=== PATIENT | female | born 1955 | race Two or more races ===

== ENCOUNTER 2024-04-02 13:28 | Inpatient (IN) | payer MEDICARE, OTHER ==
[~2024-04-02] VITALS: Ht 165.1 cm; Wt 68.0 kg
[2024-04-02 14:42] LABS: APPEARANCE,URINE CLEAR (CLEAR); BILIRUBIN,URINE NEGATIVE (NEGATIVE); BLOOD, URINE NEGATIVE Ery/uL (NEGATIVE); COLOR,URINE YELLOW (YELLOW); KETONES,URINE NEGATIVE (NEGATIVE); LEUKOCYTE ESTERASE ,URINE TRACE (NEGATIVE); NITRITE, URINE NEGATIVE (NEGATIVE); PH,URINE 5.5 (5.0-8.0); PROTEIN,URINE NEGATIVE (NEGATIVE); UGLUCOSE NEGATIVE (NEGATIVE); UROBILINOGEN,URINE 0.2 EU/dL (0.2)
[2024-04-02] MEDS ORDERED: ASCO-352 PO (14:59)
[2024-04-02] MEDS ORDERED: BISA10SU11 RC (14:59)
[2024-04-02] MEDS ORDERED: NA P133E RC (14:59)
[2024-04-02] MEDS ORDERED: AMIN30LI2 PO (14:59)
[2024-04-02] MEDS ORDERED: ARGI1POW13 PO (14:59)
[2024-04-02] MEDS ORDERED: ZIPR40CA2 PO (14:59)
[2024-04-02] MEDS ORDERED: FERR325T28 PO (14:59)
[2024-04-02] MEDS ORDERED: LITH300T3 PO (14:59)
[2024-04-02] MEDS ORDERED: ACET-868 PO ×2 (14:59)
[2024-04-02] MEDS ORDERED: ACET-2030 PO (14:59)
[2024-04-02] MEDS ORDERED: MAGN400O6 PO (14:59)
[2024-04-02] MEDS ORDERED: CHOL100062 PO (14:59)
[2024-04-02] MEDS ORDERED: ZINC220C6 PO (14:59)
[2024-04-02 15:25] LABS: AMPHETAMINE, URINE NEGATIVE (NEGATIVE); BARBITURATE, URINE NEGATIVE (NEGATIVE); BENZODIAZEPINE, URINE NEGATIVE (NEGATIVE); CANNABINOID, URINE NEGATIVE (NEGATIVE); COCCAINE, URINE NEGATIVE (NEGATIVE); OPIATE, URINE NEGATIVE (NEGATIVE); PHENCYCLIDINE SCREEN,URINE NEGATIVE (NEGATIVE)
[2024-04-02 15:29] LABS: ADD URINE CULTURE YES; BACTERIA,URINE Few /HPF (None Seen); RBC,URINE 0-2 /HPF (0-2); SQUAMOUS EPITHELIAL CELL,UR Few /HPF (None Seen); WBC,URINE 21-50 /HPF (0-3)
[2024-04-02 15:30] LABS: MUCUS,URINE Few /LPF (None Seen)
[2024-04-02 15:36] LABS: ALANINE AMINOTRANSFERASE 10 U/L (12-78); ALBUMIN 3.2 g/dL (3.4-5.0); ALCOHOL, BLOOD < 3 mg/dL (0-10); ALKALINE PHOSPHATASE 85 U/L (46-116); ASPARTATE AMINOTRANSFERASE 10 U/L (15-37); BILIRUBIN,DIRECT 0.1 mg/dL (0.0-0.2); BILIRUBIN,TOTAL 0.2 mg/dL (0.2-1.0); CALCIUM, SERUM 8.7 mg/dL (8.5-10.1); CREATININE 0.6 mg/dL (0.6-1.3); GLUCOSE 104 mg/dL (74-106); TOTAL PROTEIN, SERUM 7.1 g/dL (6.4-8.2); UREA NITROGEN, BLOOD 12 mg/dL (7-18)
[2024-04-02 15:39] LABS: CARBON DIOXIDE 29 mmol/L (21-32); CHLORIDE 103 mmol/L (98-107); SALICYLATE 1.8 mg/dL (2.8-20.0); SODIUM SERUM 138 mmol/L (136-145)
[2024-04-02 15:40] LABS: ACETAMINOPHEN <10 ug/ml (10-30)
[2024-04-02 15:52] LABS: HEMATOCRIT 38 % (33-45); HEMOGLOBIN 12.4 g/dL (11.5-14.8); MEAN CORPUSCULAR HEMOGLOBIN 86 PG (26.0-33.0); MEAN CORPUSCULAR VOLUME 86 fL (82-100); RED BLOOD CELL COUNT(AUTO) 4.39 MIL/uL (4.0-5.2); WHITE BLOOD COUNT (AUTO) 8.2 K/uL (4.3-11.0)
[2024-04-02 15:53] LABS: MEAN CORPUSCULAR HGB CONC 33 g/dl (31.0-36.0); NEUTROPHILS % (AUTO) 70.4 % (43.0-81.0); PLATELET COUNT (AUTO) 192 K/uL (150-450)
[2024-04-02 15:54] LABS: BASOPHILS % (MANUAL) 0 % (0.0-2.0); EOSINOPHILS % (MANUAL) 1 % (0-4); LYMPHOCYTES % (MANUAL) 17 % (16-48); MONOCYTES % (MANUAL) 4 % (0-11.0); NEUTROPHILS % (MANUAL) 78 (42-76)
[2024-04-02 15:55] LABS: PLATELET ESTIMATE ADEQUATE
[2024-04-02] MEDS ORDERED: NITROFURANTOIN/MONOHYDRATE MACROCRYSTALS 100 MG CAPSULE ONE (16:08)
[2024-04-02] MEDS: NITROFURANTOIN/MONOHYDRATE MACROCRYSTALS 100 MG CAPSULE PO ONE (16:11)
[2024-04-02 18:00] VITALS: O2SAT 99
[2024-04-02] MEDS ORDERED: clonazePAM 0.5 MG TABLET PO PRN (21:00)
[2024-04-02] MEDS ORDERED: MAG HYDROX/AL HYDROX/SIMETH 30 ML UDC PO PRN (21:00)
[2024-04-02] MEDS ORDERED: MAGNESIUM HYDROXIDE 30 ML UDC PO PRN (21:00)
[2024-04-02] MEDS ORDERED: TEMAZEPAM 7.5 MG CAPSULE PO PRN (21:00)
[2024-04-02] MEDS: BLOOD SUGAR DIAGNOSTIC 1 EACH STRIP IN ONE (22:10)
[2024-04-03] MEDS ORDERED: BISACODYL SUPP (10 MG) 10 MG/SUPP.RECT SUPP.RECT RC PRN (01:00)
[2024-04-03] MEDS: ARGININE/GLUTAMINE/CALCIUM BMB 1 EACH POWD.PACK PO SCH (09:30)
[2024-04-03] MEDS: FERROUS SULFATE (325 MG) 325 MG/TAB TABLET PO SCH (09:58)
[2024-04-03] MEDS: ZINC SULFATE 220 MG CAPSULE PO SCH (09:58)
[2024-04-03] MEDS: ASCORBIC ACID 500 MG TABLET PO SCH (09:58)
[2024-04-03] MEDS: LITHIUM CARBONATE (300 MG CAP) 300 MG CAPSULE PO SCH (09:58)
[2024-04-03] MEDS: ZIPRASIDONE 20 MG CAPSULE PO SCH (09:58)
[2024-04-03] MEDS: PROSOURCE / PROSTAT (PYXIS) 30 ML UDC PO SCH (09:59)
[2024-04-03] MEDS: CHOLECALCIFEROL 1,000 UNIT TABLET (VIT D3) PO SCH (10:00)
[2024-04-03 16:00] VITALS: BP 106/69; TEMP 98.1; O2SAT 99
[2024-04-04 08:00] VITALS: BP 111/72; TEMP 97.7; O2SAT 98
[2024-04-04 16:00] VITALS: BP 114/70; TEMP 97.9; O2SAT 97
[2024-04-05 08:00] VITALS: BP 101/64; TEMP 98.6; O2SAT 98
[2024-04-05 16:00] VITALS: BP 109/67; TEMP 98.6; O2SAT 97
[2024-04-06 21:31] VITALS: BP 107/61; TEMP 97.7; O2SAT 98
[2024-04-07 08:00] VITALS: BP 124/75; TEMP 98.7; O2SAT 100
[2024-04-07 16:00] VITALS: BP 127/71; TEMP 98.1; O2SAT 100
[2024-04-08 08:00] VITALS: BP 128/69; TEMP 97.8; O2SAT 99
[2024-04-08 16:00] VITALS: BP 134/65; TEMP 97.9; O2SAT 99
[2024-04-09 08:00] VITALS: BP 125/76; TEMP 97.9; O2SAT 98
[2024-04-09 16:00] VITALS: BP 114/73; TEMP 98; O2SAT 98
[2024-04-10 08:00] VITALS: BP 133/73; TEMP 98.4; O2SAT 98
[2024-04-10 16:00] VITALS: BP 137/75; TEMP 98.6; O2SAT 100
[2024-04-10] MEDS: ACETAMINOPHEN 325 MG TABLET PO PRN (22:35)
[2024-04-11 08:00] VITALS: BP 134/54; TEMP 97.9; O2SAT 98
[2024-04-11 16:00] VITALS: BP_SYST 125; BP_SYST 99; BP_DIAS 58; BP_DIAS 73; TEMP 97.9; O2SAT 98; O2SAT 99
[2024-04-12 08:00] VITALS: BP 115/73; TEMP 98.6; O2SAT 97
[2024-04-13 08:00] VITALS: BP 112/65; TEMP 97.9; O2SAT 98
[2024-04-13 16:00] VITALS: BP 141/70; TEMP 97.8; O2SAT 97
[2024-04-14] MEDS: TEMAZEPAM 7.5 MG CAPSULE PO PRN (00:27)
[2024-04-14 08:14] VITALS: BP 104/62; TEMP 98; O2SAT 99
[2024-04-14 16:08] VITALS: BP 118/97; TEMP 97.5; O2SAT 98
[2024-04-15 08:00] VITALS: BP 129/92; TEMP 97.7; O2SAT 98
[2024-04-15] MEDS: clonazePAM 0.5 MG TABLET PO PRN (08:42)
[2024-04-15 16:00] VITALS: BP 134/64; TEMP 97.9; O2SAT 97
[2024-04-16 08:00] VITALS: BP 111/95; TEMP 98; O2SAT 98
== END 2024-04-16 14:00 | DRG 885 ==
LOC: ER 13:59 → GPS 19:39
PROVIDERS: ADMIT Nurse Practitioner Psychiatric/Mental Health
DX: F31.9 Bipolar disorder, unspecified (principal); E44.1 Mild protein-calorie malnutrition; I50.32 Chronic diastolic (congestive) heart failure; F03.92 Unspecified dementia, unspecified severity, with psychotic disturbance; F03.911 Unspecified dementia, unspecified severity, with agitation; F03.93 Unspecified dementia, unspecified severity, with mood disturbance; F03.94 Unspecified dementia, unspecified severity, with anxiety; F29 Unspecified psychosis not due to a substance or known physiological condition; E78.5 Hyperlipidemia, unspecified; Z88.0 Allergy status to penicillin; Z88.8 Allergy status to other drugs, medicaments and biological substances; Z79.899 Other long term (current) drug therapy; E88.09 Other disorders of plasma-protein metabolism, not elsewhere classified; Z73.6 Limitation of activities due to disability; Z91.148 Patient's other noncompliance with medication regimen for other reason; J44.9 Chronic obstructive pulmonary disease, unspecified; R13.10 Dysphagia, unspecified; E55.9 Vitamin D deficiency, unspecified
CPT/HCPCS: 36415; 80048-TC; 80076-TC; 80178-TC; 81001; 85025-TC; 87086-TC; G0480

== ENCOUNTER 2024-10-01 18:56 | Inpatient (IN) | payer MEDICARE, OTHER ==
[~2024-10-01] VITALS: Ht 165.1 cm; Wt 70.3 kg
[~2024-10-01 18:56] MED LIST: ACET-2030 PO; ACET-868 PO; AMIN30LI2 PO; ARGI1POW13 PO; ASCO-352 PO; BISA10SU11 RC; CHOL100062 PO; FERR325T28 PO; LITH300T3 PO; MAGN400O6 PO; NA P133E RC; ZINC220C6 PO; ZIPR40CA2 PO
[2024-10-01 20:20] LABS: APPEARANCE,URINE SLIGHTLY CLOUDY (CLEAR); BLOOD, URINE NEGATIVE Ery/uL (NEGATIVE); LEUKOCYTE ESTERASE ,URINE NEGATIVE (NEGATIVE); NITRITE, URINE NEGATIVE (NEGATIVE); UGLUCOSE NEGATIVE (NEGATIVE)
[2024-10-01 20:32] LABS: ADD URINE CULTURE NO; CALCIUM OXALATE CRYSTALS,UR Moderate /HPF (None Seen); SQUAMOUS EPITHELIAL CELL,UR Many /HPF (None Seen)
[2024-10-01 20:33] LABS: AMPHETAMINE, URINE NEGATIVE (NEGATIVE); BARBITURATE, URINE NEGATIVE (NEGATIVE); BENZODIAZEPINE, URINE POSITIVE (NEGATIVE); CANNABINOID, URINE NEGATIVE (NEGATIVE); COCCAINE, URINE NEGATIVE (NEGATIVE); OPIATE, URINE NEGATIVE (NEGATIVE)
[2024-10-01 21:32] LABS: PLATELET COUNT (AUTO) 232 K/uL (150-450); RED BLOOD CELL COUNT(AUTO) 4.95 MIL/uL (4.0-5.2); RED CELL DISTRIBUTION WIDTH 15.1 % (11.5-15.0); WHITE BLOOD COUNT (AUTO) 7.4 K/uL (4.3-11.0)
[2024-10-01 21:42] LABS: CALCIUM, SERUM 8.9 mg/dL (8.5-10.1); CREATININE 0.4 mg/dL (0.6-1.3); SODIUM SERUM 142 mmol/L (136-145); UREA NITROGEN, BLOOD 16 mg/dL (7-18)
[2024-10-01 21:48] LABS: ASPARTATE AMINOTRANSFERASE 23 U/L (15-37); TOTAL PROTEIN, SERUM 6.7 g/dL (6.4-8.2)
[2024-10-01 21:51] LABS: ALCOHOL, BLOOD < 3 mg/dL (0-10)
[2024-10-01] MEDS ORDERED: MAG HYDROX/AL HYDROX/SIMETH 30 ML UDC PO PRN (23:30)
[2024-10-01] MEDS ORDERED: ZOLPIDEM TARTRATE 5 MG TABLET PO PRN (23:30)
[2024-10-01] MEDS ORDERED: ACETAMINOPHEN 325 MG TABLET PO PRN (23:30)
[2024-10-01] MEDS ORDERED: MAGNESIUM HYDROXIDE 30 ML UDC PO PRN (23:30)
[2024-10-01] MEDS ORDERED: LORAZEPAM 1 MG TABLET PO PRN (23:30)
[2024-10-01] MEDS ORDERED: ACET-2030 PO (23:35)
[2024-10-01] MEDS ORDERED: ATOR80TA PO (23:36)
[2024-10-01] MEDS ORDERED: LIDO30AD10 TP (23:39)
[2024-10-01] MEDS ORDERED: SENN-261 PO (23:41)
[2024-10-01] MEDS ORDERED: ZIPR20CA2 PO (23:43)
[2024-10-01] MEDS: BLOOD SUGAR DIAGNOSTIC 1 EACH STRIP IN ONE (23:47)
[2024-10-02 00:21] VITALS: BP 125/70; TEMP 98; O2SAT 98
[2024-10-02] MEDS ORDERED: Z GUARD REMEDY 4 OZ OINT TP PRN (02:00)
[2024-10-02] MEDS: PANTOPRAZOLE 40 MG TABLET.DR PO SCH (07:30)
[2024-10-02 08:00] VITALS: BP 127/66; TEMP 98.6; O2SAT 97
[2024-10-02] MEDS: ATORVASTATIN 40 MG TABLET PO SCH (09:00)
[2024-10-02] MEDS: NICOTINE PATCH (21MG) 21 MG PATCH.TD24 TD SCH (09:00)
[2024-10-02] MEDS: SENNOSIDES 8.6 MG TABLET PO SCH (09:00)
[2024-10-02] MEDS: LIDOCAINE 5% (PATCH) 1 EA PATCH TP SCH (09:00)
[2024-10-02] MEDS: LITHIUM CARBONATE (300 MG CAP) 300 MG CAPSULE PO SCH (14:02)
[2024-10-02 16:00] VITALS: BP 138/79; TEMP 98.6; O2SAT 95
[2024-10-02] MEDS: ZIPRASIDONE 20 MG CAPSULE PO SCH (16:33)
[2024-10-02 21:08] VITALS: BP 116/82; TEMP 98.2; O2SAT 96
[2024-10-03 16:00] VITALS: BP 110/87; TEMP 98.2; O2SAT 99
[2024-10-03 20:49] VITALS: BP 120/80; TEMP 98.2; O2SAT 98
[2024-10-04 08:00] VITALS: BP 135/78; TEMP 98.2; O2SAT 97
[2024-10-04 16:00] VITALS: BP 119/87; TEMP 98.2; O2SAT 98
[2024-10-04 20:06] VITALS: BP 132/109; TEMP 98; O2SAT 98
[2024-10-05 08:00] VITALS: BP 130/76; TEMP 97.9; O2SAT 99
[2024-10-05 16:13] VITALS: BP 140/70; TEMP 97.9; O2SAT 97
[2024-10-05 20:01] VITALS: BP 115/74; TEMP 98; O2SAT 97
[2024-10-06 08:00] VITALS: BP 131/75; TEMP 98.7; O2SAT 97
[2024-10-06] MEDS: LORAZEPAM 1 MG TABLET PO PRN (15:30)
[2024-10-06 16:00] VITALS: BP 160/68; TEMP 97.7; O2SAT 98
[2024-10-06 20:03] VITALS: BP 127/70; TEMP 97.9; O2SAT 98
[2024-10-07 08:00] VITALS: BP 147/89; TEMP 97.8; O2SAT 98
[2024-10-07 16:00] VITALS: BP 157/87; TEMP 98; O2SAT 100
[2024-10-07 20:07] VITALS: BP 169/87; TEMP 98.1; O2SAT 98
[2024-10-08 04:00] VITALS: BP 151/89; O2SAT 96
[2024-10-08 08:00] VITALS: BP 145/79; TEMP 98.1; O2SAT 97
[2024-10-08 16:00] VITALS: BP 117/74; TEMP 97.9; O2SAT 98
[2024-10-08 20:46] VITALS: BP 110/76; TEMP 97.9; O2SAT 99
[2024-10-08 22:19] LABS: PLATELET COUNT (AUTO) 314 K/uL (150-450); RED BLOOD CELL COUNT(AUTO) 5.73 MIL/uL (4.0-5.2); RED CELL DISTRIBUTION WIDTH 15.4 % (11.5-15.0); WHITE BLOOD COUNT (AUTO) 9.6 K/uL (4.3-11.0)
[2024-10-08 22:41] LABS: ASPARTATE AMINOTRANSFERASE 13.0 U/L (15-37); CALCIUM, SERUM 10.1 mg/dL (8.5-10.1); CREATININE 1.2 mg/dL (0.6-1.3); NT-PRO BNP 2802.0 pg/mL (0-125); SODIUM SERUM 140.0 mmol/L (136-145); TOTAL PROTEIN, SERUM 8.2 g/dL (6.4-8.2); UREA NITROGEN, BLOOD 36.0 mg/dL (7-18)
[2024-10-08 23:56] VITALS: BP 110/69; TEMP 100.2; O2SAT 99
[2024-10-09 01:42] LABS: APPEARANCE,URINE CLOUDY (CLEAR); BLOOD, URINE NEGATIVE Ery/uL (NEGATIVE); LEUKOCYTE ESTERASE ,URINE TRACE (NEGATIVE); NITRITE, URINE NEGATIVE (NEGATIVE); UGLUCOSE NEGATIVE (NEGATIVE)
[2024-10-09 02:47] LABS: ADD URINE CULTURE YES; SQUAMOUS EPITHELIAL CELL,UR Moderate /HPF (None Seen)
[2024-10-09 08:00] VITALS: BP 116/69; TEMP 98.6; O2SAT 98
[2024-10-09] MEDS: ENSURE ENLIVE CHOC 237 ML CAN PO SCH (09:20)
[2024-10-09 16:00] VITALS: BP 135/78; TEMP 97.5; O2SAT 100
[2024-10-09 21:08] VITALS: BP 112/65; TEMP 97.8; O2SAT 98
[2024-10-10 08:00] VITALS: BP 116/65; TEMP 97.7; O2SAT 98
[2024-10-10 16:00] VITALS: BP 100/65; TEMP 98.1; O2SAT 97
[2024-10-11 08:00] VITALS: BP 100/60; TEMP 98.1; O2SAT 98
[2024-10-11] MEDS: ZIPRASIDONE MESYLATE 20 MG/VIAL VIAL IM PRN (09:29)
[2024-10-11 16:00] VITALS: BP 123/51; TEMP 98.7; O2SAT 98
[2024-10-11 20:00] VITALS: BP 115/61; TEMP 98.4; O2SAT 100
[2024-10-11 20:13] VITALS: BP 115/61; TEMP 98.4; O2SAT 100
[2024-10-11] MEDS: ZOLPIDEM TARTRATE 5 MG TABLET PO PRN (21:26)
[2024-10-12 08:00] VITALS: BP 122/80; TEMP 97.7; O2SAT 98
[2024-10-12 16:00] VITALS: BP 97/60; TEMP 98.1; O2SAT 97
[2024-10-12 20:00] VITALS: BP 119/69; TEMP 98.4; O2SAT 96
[2024-10-12 20:26] VITALS: BP 119/69; TEMP 98.4; O2SAT 96
[2024-10-13 08:00] VITALS: BP 136/76; TEMP 97.8; O2SAT 98
[2024-10-13 16:00] VITALS: BP 122/68; TEMP 98.4; O2SAT 96
[2024-10-13 20:18] VITALS: BP 152/72; TEMP 98.3; O2SAT 99
[2024-10-14 08:00] VITALS: BP 121/77; TEMP 98.1; O2SAT 94
[2024-10-14 16:00] VITALS: BP 126/63; TEMP 97.5; O2SAT 98
[2024-10-14 20:55] VITALS: BP 121/65; TEMP 98; O2SAT 99
[2024-10-15 08:00] VITALS: BP 124/61; TEMP 97.7; O2SAT 97
== END 2024-10-15 14:44 | DRG 885 ==
LOC: ER 18:58 → GPS 22:40
PROVIDERS: ADMIT Psychiatry & Neurology Psychiatry; ATTEND Internal Medicine
DX: F31.9 Bipolar disorder, unspecified (principal); N17.9 Acute kidney failure, unspecified; I11.0 Hypertensive heart disease with heart failure; E44.1 Mild protein-calorie malnutrition; F03.918 Unspecified dementia, unspecified severity, with other behavioral disturbance; F03.94 Unspecified dementia, unspecified severity, with anxiety; I50.32 Chronic diastolic (congestive) heart failure; F41.9 Anxiety disorder, unspecified; Z20.822 Contact with and (suspected) exposure to COVID-19; Z73.6 Limitation of activities due to disability; E88.09 Other disorders of plasma-protein metabolism, not elsewhere classified; E78.5 Hyperlipidemia, unspecified; Z91.148 Patient's other noncompliance with medication regimen for other reason; Z88.0 Allergy status to penicillin; Z53.20 Procedure and treatment not carried out because of patient's decision for unspecified reasons; Z79.899 Other long term (current) drug therapy; Z88.8 Allergy status to other drugs, medicaments and biological substances; D75.1 Secondary polycythemia; F20.9 Schizophrenia, unspecified
CPT/HCPCS: 36415; 71045-TC; 80048-TC; 80076-TC; 80178-TC; 81001; 83880; 85025-TC; 87081-TC; 87086-TC; 97112-TC; 97116-TC; 97530-TC; G0480; J3486